=== PATIENT | male | born 1980 | race Caucasian/White ===

== ENCOUNTER 2025-07-07 18:44 | Emergency (ER) | payer OTHER, SELFPAY ==
[2025-07-07 18:59] VITALS: BP 134/94
[2025-07-07 19:16] LABS: Hematocrit 39.9 % (39.0-52.0); Hemoglobin 14.1 g/dL (13.0-18.0); Mean Corp Hgb Conc. 35.3 g/dL (33.0-37.0); Mean Corpuscular Volume 85.8 fL (80.0-94.0); Nucleated Red Blood Cells % 0 % (-); Platelet Count 330 10^3/uL (130-400); Red Cell Dist. Width 12.2 % (11.5-14.5)
[2025-07-07 19:37] LABS: ALT (SGPT) 40 U/L (0-50); AST (SGOT) 34 U/L (17-59); Albumin 4.8 g/dl (3.5-5.0); Alkaline Phosphatase 72 U/L (38-126); Blood Urea Nitrogen 13 mg/dl (9-20); Calcium 10.1 mg/dl (8.4-10.2); Carbon Dioxide 26 mmol/L (22-30); Chloride 103 mmol/L (98-107); Glucose 103 mg/dl (70-99); Lipase 34 U/L (23-300); Potassium 3.9 mmol/L (3.5-5.1); Sodium 138 mmol/L (135-145); Total Protein 7.3 g/dl (6.3-8.2); eGFR > 60.00
--- NOTE | 2025-07-07 22:42 | ED.GENMED ---
History of Present Illness
General
Chief Complaint: Abdominal Symptoms
Time Seen by Provider: 07/07/25 22:34
History of Present Illness
History of Present Illness:
45-year-old male presents the emergency department for evaluation of vomiting that began yesterday and continued throughout the day today. Unable to tolerate any p.o. fluids. No diarrhea or abdominal pain. No fevers or chills. No ill contacts.
Denies any recent suspicious food intake.
Review of Systems
Review of Systems
Allergies reviewed?: Yes
All Other Systems: ROS reviewed and negative except as documented in HPI and ROS
Phy Exam
Physical Exam
Physical Exam:
GEN: Well appearing, NAD, WDWN
HEENT: Oral mucosa moist, no scleral icterus
Cardiac: Regular rate and rhythm, no murmur
Lung: No respiratory distress, no tachypnea
Abdomen: Soft, nontender
MSK: No gross deformity or injuries
Skin: Good color, no pallor or jaundice, no rashes
Neuro: AO x3, moves all extremities freely
Psych: Calm, cooperative
Course
Orders/Labs/Results
Orders:
Orders
07/07/25 19:06
Complete Blood Count/With Diff Urgent
Comprehensive Metabolic Panel Urgent
Lipase Urgent
07/07/25 22:42
Lactated Ringers [Lr] 1,000 ml IV BOLUS
Ondansetron Injectable [Zofran] 4 mg IV NOW STA
Abnormal Lab Results
07/07/25
19:06
RBC 4.65 L 10^6/uL
(4.70-6.10)
Absolute Neuts (auto) 8.0 H 10^3/uL
(1.4-6.5)
Neutrophils % 80.6 H %
(42.2-75.2)
Lymphocytes % 12.6 L %
(20.5-51.1)
Glucose 103 H mg/dl
(70-99)
Total Bilirubin 2.4 H mg/dl
(0.2-1.3)
07/07/25 19:06
07/07/25 19:06
Vital Signs
Initial and Last Documented VS:
Initial Vital Signs
Temp Pulse Resp BP Pulse Ox
97.8 F 94 20 134/94 98
07/07/25 18:59 07/07/25 18:59 07/07/25 18:59 07/07/25 18:59 07/07/25 18:59
Last Documented Vital Signs
Temp Pulse Resp BP Pulse Ox
97.8 F 76 16 132/78 100
07/07/25 18:59 07/07/25 23:40 07/07/25 23:40 07/07/25 23:40 07/07/25 23:40
MDM/Problems Addressed
MDM/Problems Addressed:
Likely self-limited viral syndrome, tolerating p.o. liquids after IV fluids and antiemetics in the ED. No abdominal tenderness on exam that would warrant imaging.
*Pulse Oximetry
SaO2: 98
Oxygen Mode of Delivery: Room air
Patient hypoxic: no
*Critical Care Note
Total Time (30-74mins, 75-104mins- exclusive of procedures): Not Applicable
ED Attending Note
-
Portions of this chart may have been created with voice recognition software.� Occasional wrong word or��sound alike� substitutions may have occurred due to the inherent limitations of voice recognition software.
Discharge Plan
Departure
Patient Disposition: Home (Routine Discharge)
Date of Disposition: 07/08/25
Time of Disposition: 00:28
Patient with high blood pressure during this ER visit?: No
Discharge Problem:
Nausea and vomiting
Instructions: Nausea and Vomiting, Adult (DC)
Prescriptions:
New
ondansetron 4 mg tablet,disintegrating
4 mg PO TIDPRN PRN (Reason: nausea/vomiting) Qty: 10 0RF
No Action
sertraline [Zoloft] 100 mg Tablet
100 mg PO DAILY
omeprazole [Prilosec] 40 mg Capsule,Delayed Release(Dr/Ec)
40 mg PO DAILY
buspirone [BuSpar] 10 mg Tablet
20 mg PO BID
Referrals:
Augustus De Souza MD [Family Provider, Family Practice]
Interventions
Interventions:
*Risk Screen - Suicide Last Done: 07/07/25 18:59
*General Assessment Last Done: 07/07/25 23:18
*Neglect/Abuse Screening Last Done: 07/07/25 18:59
*ED- Fall Risk Assessment Last Done: 07/07/25 23:18
*ED COVID-19 Vaccine History Last Done: 07/07/25 23:18
*ED Influenza Vaccine History Last Done: 07/07/25 23:18
CR-Jteyaz-Ldqtoukddc Assessment Last Done: 07/07/25 23:43
Discharge Date and Time
Print Language: DJIBOUTIAN
[2025-07-07 23:16] VITALS: BMI 28.2
[2025-07-07] MEDS: LR 1000 IV (23:35)
[2025-07-07] MEDS: ZOFRAN 4 MG IV (23:36)
[2025-07-07 23:40] VITALS: BP 132/78
== END 2025-07-08 00:30 | disposition home or self-care (01) ==
LOC: EMR 18:44
PROVIDERS: Registered Nurse; EMERGENCY PHYSICIAN Emergency Medicine; FAMILY PHYSICIAN Family Medicine
DX: R11.2 Nausea with vomiting, unspecified (principal)
CPT/HCPCS: 96374; 99284; 80053; 83690; 85025